=== PATIENT | male | born 1975 | race Caucasian/White ===

== ENCOUNTER 2016-06-22 17:03 | Emergency (ER) | payer OTHER ==
[~2016-06-22] VITALS: Ht 170.2 cm; Wt 79.4 kg
[~2016-06-22 17:03] MED LIST: ERYT1OIN6 OD
[2016-06-22 19:50] VITALS: BP 149/80
[2016-06-22] MEDS ORDERED: TETRACAINE 0.5% OPHTH SOLUTION 4ML BOTTLE. OD ONE (20:00)
[2016-06-22] MEDS ORDERED: OFLO5DRO OD (20:22)
--- NOTE | 2016-06-22 20:22 | PHYS DOC ---
Past Medical History Past Medical History: No Pertinent History Past Surgical History: No Surgical History Additional Information: Nonsmoker Alcohol Use: Occasionally Drug Use: None Adult General Chief Complaint Chief Complaint: FOREIGN BODY/EYES HPI HPI Patient is a 40 year old male who presents with a metal fragment in the right eye. Patient states that he was at work, wearing his protective eyewear, when a piece of metal blew into his eye at approximately 1530 today. He denies any change in his vision. He has not had any drainage from the eye. His tetanus immunization is up-to-date. His PCP is Dr. Vega. He does not have an boarder machine. Review of Systems Review of Systems Constitutional: Denies fever or chills. [] Eyes: Denies change in visual acuity, redness. Reports right eye pain and foreign body. Musculoskeletal: Denies back pain or joint pain. [] Integument: Denies rash or skin lesions. [] Neurologic: Denies headache, focal weakness or sensory changes. [] Current Medications Current Medications Current Medications Medications (Trade) Dose Ordered Sig/Noelle Start Time Stop Time Status Last Admin Dose Admin Tetracaine HCl (Tetracaine) 1 drop 1X ONCE 06/22/16 20:00 06/22/16 20:01 DC 06/22/16 20:04 1 DROP Allergies Allergies Allergies Coded Allergies Type Severity Reaction Last Updated Verified No Known Allergies Allergy Unknown 11/04/15 Yes Physical Exam Physical Exam Constitutional: Well developed, well nourished, no acute distress, non-toxic appearance. [] HENT: Normocephalic, atraumatic, bilateral external ears normal, oropharynx moist, no oral exudates, nose normal. [] Eyes: PERRLA, EOMI, conjunctiva normal, no discharge. There is a speck of metal in the right eye over the pupil near the 3 o'clock position. Skin: Warm, dry, no erythema, no rash. [] Neurologic: Alert and oriented X 3, normal motor function, normal sensory function, no focal deficits noted. [] Psychologic: Affect normal, judgement normal, mood normal. [] EKG EKG [] Radiology/Procedures Radiology/Procedures [] Course & Med Decision Making Course & Med Decision Making Pertinent Labs and Imaging studies reviewed. (See chart for details) The eye was anesthetized using tetracaine 0.5% ophthalmic drops. The foreign body was removed using a cotton-tipped swab. Patient is discharged home with prescription for Ocuflox ophthalmic drops. He is given contact information for ophthalmology for follow-up. Return precautions were discussed. He verbalizes understanding and agrees with plan. Dragon Disclaimer Dragon Disclaimer This electronic medical record was generated, in whole or in part, using a voice recognition dictation system. Departure Departure Impression: Primary Impression: Corneal abrasion Additional Impression: Corneal foreign body Disposition: HOME, SELF-CARE Condition: IMPROVED Referrals: [facility] MD Patient Instructions: Eye - Corneal Abrasion, [id number], Eye - Corneal Foreign Body Additional Instructions: You were seen for a piece of metal in your eye. The metal was removed. Please use the prescribed antibiotics as directed for one week. This is to prevent an infection from the scratch caused by the metal in your eye. Please follow-up with the boarder machine listed below if you have any change in her vision, increased redness, swelling, or drainage from either eye. Return to emergency department if you have any new or concerning symptoms. Scripts Ofloxacin (Ocuflox)5 Ml Drops2 Drop OD QID 7 Days Prov:NIGHAT DURANT 06/22/16 Problem Qualifiers Primary Impression: Corneal abrasion Encounter type: initial encounter Laterality: right Qualified Code: S05.01XA - Injury of conjunctiva and corneal abrasion without foreign body, right eye, initial encounter Additional Impression: Corneal foreign body Encounter type: initial encounter Laterality: right Qualified Code: T15.01XA - Foreign body in cornea, right eye, initial encounter NIGHAT DURANT Jun 22, 2016 20:22
== END 2016-06-22 20:30 | disposition home or self-care (01) ==
LOC: ER 17:03
DX: T15.01XA Foreign body in cornea, right eye, initial encounter (principal); X58.XXXA Exposure to other specified factors, initial encounter; Y93.89 Activity, other specified; Y92.89 Other specified places as the place of occurrence of the external cause; Y99.8 Other external cause status
CPT/HCPCS: 65220; 99282; 99284-25